=== PATIENT | male | born 1985 | race American Indian/Alaskan Native ===

== ENCOUNTER 2021-07-19 17:35 | Emergency (ER) | payer OTHER ==
[2021-07-19] MEDS ORDERED: Ondansetron 4 MG/2 ML SDV IVPUSH ONE (18:33)
[2021-07-19] MEDS ORDERED: HYDROmorphone 1 MG/ML Syringe IVPUSH ONE (18:33)
== END 2021-07-19 19:30 | disposition home or self-care (01) ==
LOC: DL.ED 17:35
DX: S62.314A Displaced fracture of base of fourth metacarpal bone, right hand, initial encounter for closed fracture (principal); S62.324A Displaced fracture of shaft of fourth metacarpal bone, right hand, initial encounter for closed fracture; F17.210 Nicotine dependence, cigarettes, uncomplicated; V29.9XXA Motorcycle rider (driver) (passenger) injured in unspecified traffic accident, initial encounter; Y92.410 Unspecified street and highway as the place of occurrence of the external cause
CPT/HCPCS: 29125; 73130; 96374; 96375; 99283; J1170; J2405

== ENCOUNTER 2024-04-25 19:59 | Emergency (ER) | payer MEDICAID, OTHER ==
[2024-04-25] MEDS: Iopamidol 612 MG/ML 100 ML Bottle IVPUSH ONE (19:48)
[2024-04-25 19:57] LABS: BASOPHILS PERCENT AUTO 0.2 % (0.0-1.0); EOSINOPHILS PERCENT AUTO 3.5 % (1.0-3.0); HEMATOCRIT 40.2 % (40.0-54.0); HEMOGLOBIN 12.5 g/dL (14.0-18.0); LYMPHOCYTES PERCENT AUTO 24.1 % (20.5-50.1); MEAN CORPUSCULAR HEMOGLOBIN 24.9 pg (27.0-34.0); MEAN CORPUSCULAR HGB CONC 31.1 g/dL (33.0-35.0); MEAN CORPUSCULAR VOLUME 80.1 fL (80-100); MONOCYTES PERCENT AUTO 9.9 % (2-8); NEUTROPHILS PERCENT AUTO 62.3 % (42.2-75.2); PLATELET COUNT,PLT 310 10^3/uL (150-450); RED BLOOD CELL COUNT 5.02 10^6/uL (4.6-6.2); WHITE BLOOD CELL COUNT,WBC 8.8 10^3/uL (5.0-10.0)
[2024-04-25 20:18] LABS: ALANINE AMINOTRANSFERASE,ALT 69 U/L (16-63); ALBUMIN 2.4 g/dL (3.4-5.0); ALKALINE PHOSPHATASE 165 U/L (46-116); ASPARTATE AMNIOTRANSFERASE,AST 42 U/L (15-37); BLOOD UREA NITROGEN,BUN 17 mg/dL (7-18); BUN/CREATININE RATIO 13.1 (No establ ref range); CALCIUM 8.2 mg/dL (8.5-10.1); CARBON DIOXIDE,CO2 26 mmol/L (21-32); CHLORIDE,CL 104 mmol/L (98-107); GLUCOSE RANDOM 171 mg/dL (70-99); LIPASE 62 U/L (16-77); MAGNESIUM 1.8 mg/dL (1.8-2.4); PROTEIN TOTAL,TP 6.8 g/dL (6.4-8.2)
[2024-04-25 20:21] LABS: ANION GAP 12.2 mEq/L (7-13); POTASSIUM,K 4.2 mmol/L (3.5-5.1); SODIUM,NA 138 mmol/L (136-145)
[2024-04-25 20:24] LABS: A/G RATIO 0.55; ESTIMATED GFR 72 mL/min (>=60); ETHANOL BLOOD MEDICAL < 3 mg/dL (0)
[2024-04-25 22:19] LABS: BILIRUBIN,URINE NEGATIVE (NEGATIVE); COLOR,URINE DARK YELLOW (YELLOW); GLUCOSE,URINE NEGATIVE (NEGATIVE); KETONES,URINE NEGATIVE (NEGATIVE); LEUKOCYTE ESTERASE,URINE TRACE (NEGATIVE); NITRITE,URINE NEGATIVE (NEGATIVE); OCCULT BLOOD,URINE MODERATE (NEGATIVE); PH,URINE 5.5 (5.0-9.0); PROTEIN,URINE 100 (NEGATIVE)
[2024-04-25 22:20] LABS: APPEARANCE,URINE SLIGHTLY CLOUDY (CLEAR)
[2024-04-25 22:23] LABS: AMPHETAMINES,URINE NEGATIVE (NEGATIVE); BARBITURATES,URINE NEGATIVE (NEGATIVE); BENZODIAZEPINE,URINE NEGATIVE (NEGATIVE); MDMA (ECSTASY), URINE NEGATIVE (NEGATIVE); METHADONE,URINE NEGATIVE (NEGATIVE); METHAMPHETAMINES,URINE POSITIVE (NEGATIVE); OPIATES,URINE NEGATIVE (NEGATIVE); OXYCODONE,URINE NEGATIVE (NEGATIVE); PHENCYCLIDINE,URINE NEGATIVE (NEGATIVE); TCA,URINE NEGATIVE (NEGATIVE)
[2024-04-25 22:28] LABS: BACTERIA,URINE RARE /HPF (0-FEW/HPF); EPITHELIAL CELLS,URINE FEW /HPF (NOT SEEN)
[2024-04-25 23:40] LABS: INR 1.1 (0.9-1.2); PROTHROMBIN TIME 11.5 SEC (9.0-12.0)
[2024-04-25] MEDS: Acetaminophen 325 MG Tab PO ONE (23:41)
[2024-04-26] MEDS: Furosemide 40 MG/4 ML VIAL IVPUSH ONE (00:09)
== END 2024-04-26 01:05 | disposition home or self-care (01) ==
LOC: DL.ED 19:59
DX: M54.50 Low back pain, unspecified (principal); I50.9 Heart failure, unspecified; F12.10 Cannabis abuse, uncomplicated; F15.10 Other stimulant abuse, uncomplicated; R94.5 Abnormal results of liver function studies; Z87.891 Personal history of nicotine dependence; W00.0XXA Fall on same level due to ice and snow, initial encounter
CPT/HCPCS: 36415; 70450; 71260; 72125; 74177; 80053; 80305; 80307; 81001; 83690; 83735; 83880; 84484; 85025; 85610; 87086; 93005; 96374; 99284; A9270; J1940; Q9967; 93010

== ENCOUNTER 2024-04-28 16:11 | Inpatient (IN) | payer BC, MEDICAID ==
[2024-04-28] MEDS ORDERED: Sodium Chloride 0.9% 10 ML Syringe FLUSH PRN (17:07)
[2024-04-28 17:18] LABS: BASOPHILS PERCENT AUTO 0.2 % (0.0-1.0); EOSINOPHILS PERCENT AUTO 1.2 % (1.0-3.0); HEMATOCRIT 43.8 % (40.0-54.0); HEMOGLOBIN 13.7 g/dL (14.0-18.0); LYMPHOCYTES PERCENT AUTO 20.9 % (20.5-50.1); MEAN CORPUSCULAR HEMOGLOBIN 24.6 pg (27.0-34.0); MEAN CORPUSCULAR HGB CONC 31.3 g/dL (33.0-35.0); MEAN CORPUSCULAR VOLUME 78.5 fL (80-100); MONOCYTES PERCENT AUTO 9.1 % (2-8); NEUTROPHILS PERCENT AUTO 68.6 % (42.2-75.2); PLATELET COUNT,PLT 375 10^3/uL (150-450); RED BLOOD CELL COUNT 5.58 10^6/uL (4.6-6.2); WHITE BLOOD CELL COUNT,WBC 9.3 10^3/uL (5.0-10.0)
[2024-04-28 17:41] LABS: A/G RATIO 0.5; ALBUMIN 2.4 g/dL (3.4-5.0); ANION GAP 12.7 mEq/L (7-13); BUN/CREATININE RATIO 13.9 (No establ ref range); C-REACTIVE PROTEIN 3.2 ng/dL (<=0.50); CALCIUM 8.7 mg/dL (8.5-10.1); CREATININE 1.58 mg/dL (0.70-1.30); EST CRCL DRUG DOSING (CG) 64.81 mL/min; POTASSIUM,K 4.7 mmol/L (3.5-5.1); PROTEIN TOTAL,TP 7.2 g/dL (6.4-8.2)
[2024-04-28 17:46] LABS: LACTIC ACID 2.2 mmol/L (0.4-2.0)
[2024-04-28] MEDS: Furosemide 40 MG/4 ML VIAL IVPUSH ONE (18:12)
[2024-04-28] MEDS: Cefepime 2 GM Vial IVPUSH ONE (18:24)
[2024-04-28] MEDS ORDERED: Acetaminophen 325 MG Tab PO PRN (19:10)
[2024-04-28] MEDS ORDERED: Ondansetron 4 MG/2 ML SDV IVPUSH PRN (19:10)
[2024-04-28 19:41] LABS: GAMMA GLUTAMYL TRANSFERASE,GGT 61 U/L (15-85); T4 FREE 1.41 ng/dL (0.76-1.46); TSH ULTRASENSITIVE 5.59 uIU/mL (0.36-3.74)
[2024-04-28 19:50] LABS: ETHANOL BLOOD MEDICAL < 3 mg/dL (0)
[2024-04-28 20:06] LABS: LACTIC ACID 2.4 mmol/L (0.4-2.0)
[2024-04-28] MEDS: chlordiazePOXIDE 25 MG Cap PO SCH (20:09)
[2024-04-28] MEDS: Multivitamin Tab PO SCH (20:10)
[2024-04-28] MEDS: VANCOmycin 500 MG SDV ONE (20:14)
[2024-04-28] MEDS: Folic Acid 1 MG in Sodium Chloride 0.9% 50 ML IV ONE (20:50)
[2024-04-28] MEDS: Heparin Sodium 5,000 Units/ML Vial SUBCUT SCH (20:50)
[2024-04-28] MEDS: Furosemide 100 MG in Sodium Chloride 0.9% 90 ML IV SCH (20:51)
[2024-04-28] MEDS: Lidocaine 2% Jelly 10 ML Urojet ONE (23:56)
[2024-04-29 06:37] LABS: BASOPHILS PERCENT AUTO 0.6 % (0.0-1.0); EOSINOPHILS PERCENT AUTO 2.2 % (1.0-3.0); HEMATOCRIT 40.5 % (40.0-54.0); LYMPHOCYTES PERCENT AUTO 27.4 % (20.5-50.1); MEAN CORPUSCULAR HEMOGLOBIN 24.7 pg (27.0-34.0); MEAN CORPUSCULAR HGB CONC 32.1 g/dL (33.0-35.0); MONOCYTES PERCENT AUTO 10.4 % (2-8); NEUTROPHILS PERCENT AUTO 59.4 % (42.2-75.2); PLATELET COUNT,PLT 364 10^3/uL (150-450); RED BLOOD CELL COUNT 5.26 10^6/uL (4.6-6.2); WHITE BLOOD CELL COUNT,WBC 6.9 10^3/uL (5.0-10.0)
[2024-04-29 07:14] LABS: ALBUMIN 2.2 g/dL (3.4-5.0); BILIRUBIN DIRECT 0.5 mg/dL (0.0-0.2); BILIRUBIN INDIRECT 1.2; BILIRUBIN TOTAL 1.7 mg/dL (0.2-1.0); CALCIUM 8.2 mg/dL (8.5-10.1); CREATININE 1.48 mg/dL (0.70-1.30); EST CRCL DRUG DOSING (CG) 69.19 mL/min; MAGNESIUM 1.9 mg/dL (1.8-2.4); PROTEIN TOTAL,TP 6.6 g/dL (6.4-8.2); VANCOMYCIN RANDOM 11.1 ug/mL (No Normal Range)
[2024-04-29 07:15] LABS: A/G RATIO 0.5
[2024-04-29] MEDS: VANCOmycin 1 GM in Sodium Chloride 0.9% 250 ML IV SCH (07:58)
[2024-04-29] MEDS: Cefepime 2 GM Vial IVPUSH SCH (09:32)
[2024-04-29] MEDS: Nicotine 7 MG/24 Hr Patch TRDERM SCH (12:15)
== END 2024-04-29 14:19 | DRG 871 ==
LOC: DL.ED 16:11 → DL.MS 18:02
PROVIDERS: ADMIT Internal Medicine; ATTEND Internal Medicine
DX: A41.9 Sepsis, unspecified organism (principal); I50.23 Acute on chronic systolic (congestive) heart failure; J15.9 Unspecified bacterial pneumonia; N17.9 Acute kidney failure, unspecified; I42.7 Cardiomyopathy due to drug and external agent; E87.20 Acidosis, unspecified; I42.0 Dilated cardiomyopathy; I42.6 Alcoholic cardiomyopathy; R65.20 Severe sepsis without septic shock; F10.20 Alcohol dependence, uncomplicated; F15.10 Other stimulant abuse, uncomplicated; F12.10 Cannabis abuse, uncomplicated; I08.1 Rheumatic disorders of both mitral and tricuspid valves; I25.9 Chronic ischemic heart disease, unspecified
CPT/HCPCS: 36415; 51702; 71046; 80048; 80053; 80076; 80202; 80307; 82607; 82746; 82977; 83605; 83735; 83880; 84145; 84439; 84443; 84484; 85025; 86140; 86738; 87040; 87428-QW; 93005; 93306; 99285; A9270-GY; J0692; J1644; J1940; J3490; J7040; J7050

== ENCOUNTER 2024-05-25 14:28 | Emergency (ER) | payer OTHER, MEDICAID | END 2024-05-25 15:50 | LOC: DL.ED 14:28 | DX: I50.9 Heart failure, unspecified (principal); F15.20 Other stimulant dependence, uncomplicated; Z79.899 Other long term (current) drug therapy | CPT/HCPCS: 36415; 71045; 83880; 87428-QW; 93005; 99285 ==